=== PATIENT | female | born 1980 | race Caucasian/White ===

== ENCOUNTER 2016-04-07 08:35 | Emergency (ER) | payer OTHER ==
[2016-04-07] MEDS ORDERED: NORCO, ANEXSIA 5/325MG TABLET (HYDROcodone/ACETAMINOPHEN) As Ordered ONE (09:43)
[2016-04-07] MEDS ORDERED: guaiFENesin SYRUP 200 MG/10 ML UDC As Ordered ONE (09:43)
--- NOTE | 2016-04-07 10:02 | REP ---
PA CHEST AND RIGHT RIB SERIES, COMPLETE: 04/07/2016. Comparison: None. Clinical history: Cough, right-sided chest pain. Findings: PA chest: The lung khan are well inflated. There is no pleural effusion, lateral pleural thickening, apical scarring or pneumothorax. No pulmonary nodules. The heart, mediastinal and hilar contours are normal and the airway intact. Thoracic spine visualized is unremarkable. Clavicle, ribs, scapula and portions of humerus in the PA chest unremarkable. Right ribs: Clavicle, scapula and humeral head unremarkable. The posterior rib articulations on both sides were intact. Vertebral bodies were grossly intact. The visualized ribs show no fracture, focal lesion, effusion or pneumothorax. Impression: 1. Negative PA chest and right rib series for any acute fracture, focal bone lesion, effusion or pneumothorax. 2. There is no infiltrate, atelectasis, mass or other significant finding. Bones intact. Signed by Osman Ferreira MD 04/07/2016 03:41 P
--- NOTE | 2016-04-07 10:23 | EDDOCDS ---
Nurse's Notes [facility] Name: Radha Castillo Age: 35 yrs Sex: Female : 1980 Arrival Date: 04/07/2016 Time: 08:35 Bed I2 / M2 Private MD: Diagnosis: Strain of muscle and tendon of front wall of thorax-right lower ribs;Cough Presentation: 04/07 08:45 Presenting complaint: Patient states: has had cough for 2 weeks. given an inhaler from [facility] the clinic. today when she coughed, felt a pop on the right side and pain since. Adult Sepsis Screening: The patient does not have new or worsening altered mentation. Patient's respiratory rate is less than 22. Systolic blood pressure is greater than 100. Patient has a qSOFA score of 0- Negative Sepsis Screen. Suicide/Homicide risk assessment- the patient denies having any suicidal and/or homicidal ideations and does not present with any other emotional, behavioral or mental health complaints. Status: Patient is not a protective service specialist or dependent. Transition of care: patient was not received from another setting of care. 08:45 Acuity: KAREN Level 4 [facility] 08:45 Method Of Arrival: Walkin/Carried/Asstd [facility] Triage Assessment: 08:47 General: Appears in no apparent distress, Behavior is appropriate for age, cooperative. [facility] Pain: Pain currently is 9 out of 10 on a pain scale. HIV screening NA for this visit Offered previously. 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 ventolin HFA every 4-5 hr prn - PMHx: none; - PSHx: none; - Social history: Smoking status: Patient states was never smoker of tobacco. No barriers to communication noted, The patient speaks fluent Yemeni, Speaks appropriately for age. - Family history: Not pertinent. - : The pt / caregiver states he / she is not on anticoagulants. Home medication list is obtained from the patient. - Exposure Risk Screening:: None identified. Screenin:23 Screening information is obtained from the patient. Fall risk: No risks identified. srm Assistance ADL's: requires no assistance with activities of daily living. Abuse/DV Screen: The patient / caregiver reports he/she is: not in a situation that causes fear, pain or injury. Nutritional screening: No deficits noted. Advance Directives: There is no active DNR order. home support is adequate. Assessment: 09:23 General: Appears uncomfortable, Behavior is appropriate for age, cooperative. srm Neurological: No deficits noted. Respiratory: Airway is patent Respiratory effort is even, unlabored, shallow, Breath sounds are clear in left posterior upper lobe and left posterior lower lobe Breath sounds are diminished in right posterior upper lobe, right posterior middle lobe and right posterior lower lobe. GI: No deficits noted. Derm: No deficits noted. 10:20 General: Appears in no apparent distress, Behavior is appropriate for age, cooperative. srm 10:21 Respiratory: Airway is patent Respiratory effort is even, unlabored, shallow. [facility] Vital Signs: 08:47 BP 116 / 71; Pulse 85; Resp 18; Temp 99.1(TE); Pulse Ox 100% on R/A; Weight 47.63 kg; srm Height 5 ft. 3 in. (160.02 cm); 10:18 BP 114 / 72 LA Sitting (auto/reg); Pulse 84; Resp 16; Temp 98.0(O); Pulse Ox 100% on rs6 R/A; Pain 9/10; 08:47 Body Mass Index 18.60 (47.63 kg, 160.02 cm) [facility] Vitals: 08:47 Log In Time: April 07, 2016 at 08:33. [facility] ED Course: 08:36 Patient visited by Kayla Hernandez Reg. lg 08:36 Patient moved to Waiting lg 08:46 Triage Initiated srm 08:52 Patient moved to Triage 2 srm 08:53 Patient moved to I4 / M4 srm 08:55 Patient moved to I2 / M2 rs6 08:56 Patient moved to Radiology srm 09:08 [facility] Graham [facility]. dt4 09:08 Milena Doran MD is Attending Physician. dt4 09:08 Patient visited by Dayna Graham PA-C. dt4 09:10 Patient moved to I2 / M2 bh4 09:23 The patient / caregiver is instructed regarding the plan of care and ED course. srm Accompanied by Family Member, Patient has correct armband on for positive identification. 09:24 Patient visited by Danyell Heller RN. [facility] 09:46 Patient visited by Danyell Heller RN. [facility] 09:52 [facility] Payment Agreement was scanned into [employer] and attached to record. mm15 10:20 Patient visited by Karla Sylvester PCA. rs6 10:21 No IV's were initiated during this patient's visit. No procedures done that require srm assistance. Administered Medications: 09:46 Drug: HYDROcodone-acetaminophen 1 tabs [hydrocodone 5 mg-acetaminophen 325 mg tablet (1 srm tabs)] Route: PO; 10:21 Follow up: Response: Pain is unchanged, physician notified srm 09:46 Drug: guaiFENesin 200 mg [guaifenesin 100 mg/5 mL oral liquid (10 mL)] Route: PO; srm Order Results: There are currently no results for this order. Outcome: 10:14 Discharge ordered by Provider. dt4 10:21 Discharge Assessment: Patient awake, alert and oriented x 3. No cognitive and/or srm functional deficits noted. Patient verbalized understanding of disposition instructions. patient administered narcotics - yes. Pt provided with safe discharge. The following High Risk Discharge criteria are identified: None. Discharged to home ambulatory, with family. Condition: stable. Discharge instructions given to patient, Instructed on discharge instructions, follow up and referral plans. medication usage, Demonstrated understanding of instructions, medications, Pt was receptive of discharge instructions/ teaching. Prescriptions given X 2. No special radiology studies were completed. Property sent home with patient. 10:22 Patient left the ED. srm Signatures: Danyell Heller, RN RN [facility] Kayla Hernandez Reg Reg lg Hayes, Beth 4 Gemini Hardy mm15 Dayna Graham PA-C PA-C dt4 Karla Sylvester PCA PIANO REGULATOR rs6 MTDD
--- NOTE | 2016-04-07 10:23 | EDDOCDS ---
Physician Documentation [facility] Name: Radha Castillo Age: 35 yrs Sex: Female : 1980 Arrival Date: 04/07/2016 Time: 08:35 Bed I2 / M2 Private MD: Disposition: 04/07/16 10:14 Discharged to Home/Self Care. Impression: Strain of muscle and tendon of front wall of thorax - right lower ribs, Cough. - Condition is Stable. - Discharge Instructions: Muscle Strain, Cough, Adult. - Prescriptions for Iophen C- NR 10-100 mg/5 mL Oral liquid - take 10 milliliter by ORAL route at bedtime As needed; 120 milliliter. [place] 5- 325 mg Oral Tablet - take 1 tablet by ORAL route every 6 hours As needed MDD: 4 tabs; 20 tablet. - Medication Reconciliation, Local Pharmacy Hours form. - Follow up: Emergency Department; When: As needed; Reason: Worsening of conditions. Follow up: Private Physician; When: Call to arrange an appointment; Reason: Wound/Symptom Recheck, Recheck today's complaints, Continuance of care. - Problem is new. - Symptoms are unchanged. Historical: - Allergies: no known allergies; - Home Meds: 1. ventolin HFA every 4-5 hr prn - PMHx: none; - PSHx: none; - Social history: Smoking status: Patient states was never smoker of tobacco. No barriers to communication noted, The patient speaks fluent South Korean, Speaks appropriately for age. - Family history: Not pertinent. - : The pt / caregiver states he / she is not on anticoagulants. Home medication list is obtained from the patient. - Exposure Risk Screening:: None identified. 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 3 in. (160.02 cm); 10:18 BP 114 / 72 LA Sitting (auto/reg); Pulse 84; Resp 16; Temp 98.0(O); Pulse Ox 100% on rs6 R/A; Pain 9/10; 08:47 Body Mass Index 18.60 (47.63 kg, 160.02 cm) srm MDM: 08:49 Rib Unilat W/PA Chest Only Ordered. EDMS 09:13 Financial registration complete. mm15 09:34 HYDROcodone-acetaminophen 5 mg-325 mg 1 tabs PO once ordered. dt4 09:34 guaiFENesin Liquid 200 mg PO once ordered. dt4 09:52 [facility] Payment Agreement was scanned into [employer] and attached to record. mm15 Administered Medications: 09:46 Drug: HYDROcodone-acetaminophen 1 tabs [hydrocodone 5 mg-acetaminophen 325 mg tablet (1 srm tabs)] Route: PO; 10:21 Follow up: Response: Pain is unchanged, physician notified srm 09:46 Drug: guaiFENesin 200 mg [guaifenesin 100 mg/5 mL oral liquid (10 mL)] Route: PO; srm Signatures: Dispatcher [employer] EDMS Danyell Heller RN RN srm Gemini Hardy mm15 Dayna Graham PA-C PA-C dt4 The chart was reviewed and I authenticate all verbal orders and agree with the evaluation and treatment provided.Attachments: 09:52 [facility] Payment Agreement mm15 MTDD
--- NOTE | 2016-04-09 11:23 | EDDOCDS ---
Physician Documentation [facility] Name: Radha Castillo Age: 35 yrs Sex: Female : 1980 Arrival Date: 04/07/2016 Time: 08:35 Bed I2 / M2 Private MD: Disposition: 04/07/16 10:14 Discharged to Home/Self Care. Impression: Strain of muscle and tendon of front wall of thorax - right lower ribs, Cough. - Condition is Stable. - Discharge Instructions: Muscle Strain, Cough, Adult. - Prescriptions for Iophen C- NR 10-100 mg/5 mL Oral liquid - take 10 milliliter by ORAL route at bedtime As needed; 120 milliliter. [place] 5- 325 mg Oral Tablet - take 1 tablet by ORAL route every 6 hours As needed MDD: 4 tabs; 20 tablet. - Medication Reconciliation, Local Pharmacy Hours form. - Follow up: Emergency Department; When: As needed; Reason: Worsening of conditions. Follow up: Private Physician; When: Call to arrange an appointment; Reason: Wound/Symptom Recheck, Recheck today's complaints, Continuance of care. - Problem is new. - Symptoms are unchanged. Historical: - Allergies: no known allergies; - Home Meds: 1. ventolin HFA every 4-5 hr prn - PMHx: none; - PSHx: none; - Social history: Smoking status: Patient states was never smoker of tobacco. No barriers to communication noted, The patient speaks fluent Indian, Speaks appropriately for age. - Family history: Not pertinent. - : The pt / caregiver states he / she is not on anticoagulants. Home medication list is obtained from the patient. - Exposure Risk Screening:: None identified. 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 3 in. (160.02 cm); 10:18 BP 114 / 72 LA Sitting (auto/reg); Pulse 84; Resp 16; Temp 98.0(O); Pulse Ox 100% on rs6 R/A; Pain 9/10; 08:47 Body Mass Index 18.60 (47.63 kg, 160.02 cm) srm MDM: 08:49 Rib Unilat W/PA Chest Only Ordered. EDMS 09:13 Financial registration complete. mm15 09:34 HYDROcodone-acetaminophen 5 mg-325 mg 1 tabs PO once ordered. dt4 09:34 guaiFENesin Liquid 200 mg PO once ordered. dt4 09:52 [facility] Payment Agreement was scanned into [employer] and attached to record. mm15 14:51 T-Sheet-- Draft Copy was scanned into [employer] and attached to record. gb Administered Medications: 09:46 Drug: HYDROcodone-acetaminophen 1 tabs [hydrocodone 5 mg-acetaminophen 325 mg tablet (1 srm tabs)] Route: PO; 10:21 Follow up: Response: Pain is unchanged, physician notified srm 09:46 Drug: guaiFENesin 200 mg [guaifenesin 100 mg/5 mL oral liquid (10 mL)] Route: PO; srm Signatures: Dispatcher [employer] EDMS Danyell Heller RN RN srm Marcella Cordon, Reg Reg Gemini Young mm15 Dayna Grahma PA-C PA-C dt4 The chart was reviewed and I authenticate all verbal orders and agree with the evaluation and treatment provided.Attachments: 09:52 [facility] Payment Agreement mm15 14:51 T-Sheet-- Draft Copy gb Chart Complete MTDD
--- NOTE | 2016-04-09 11:23 | EDDOCDS ---
Nurse's Notes [facility] Name: Radha Castillo Age: 35 yrs Sex: Female : 1980 Arrival Date: 04/07/2016 Time: 08:35 Bed I2 / M2 Private MD: Diagnosis: Strain of muscle and tendon of front wall of thorax-right lower ribs;Cough Presentation: 04/07 08:45 Presenting complaint: Patient states: has had cough for 2 weeks. given an inhaler from [facility] the clinic. today when she coughed, felt a pop on the right side and pain since. Adult Sepsis Screening: The patient does not have new or worsening altered mentation. Patient's respiratory rate is less than 22. Systolic blood pressure is greater than 100. Patient has a qSOFA score of 0- Negative Sepsis Screen. Suicide/Homicide risk assessment- the patient denies having any suicidal and/or homicidal ideations and does not present with any other emotional, behavioral or mental health complaints. Status: Patient is not a front services agent or dependent. Transition of care: patient was not received from another setting of care. 08:45 Acuity: KAREN Level 4 [facility] 08:45 Method Of Arrival: Walkin/Carried/Asstd [facility] Triage Assessment: 08:47 General: Appears in no apparent distress, Behavior is appropriate for age, cooperative. [facility] Pain: Pain currently is 9 out of 10 on a pain scale. HIV screening NA for this visit Offered previously. 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 ventolin HFA every 4-5 hr prn - PMHx: none; - PSHx: none; - Social history: Smoking status: Patient states was never smoker of tobacco. No barriers to communication noted, The patient speaks fluent Nauruan, Speaks appropriately for age. - Family history: Not pertinent. - : The pt / caregiver states he / she is not on anticoagulants. Home medication list is obtained from the patient. - Exposure Risk Screening:: None identified. Screenin:23 Screening information is obtained from the patient. Fall risk: No risks identified. srm Assistance ADL's: requires no assistance with activities of daily living. Abuse/DV Screen: The patient / caregiver reports he/she is: not in a situation that causes fear, pain or injury. Nutritional screening: No deficits noted. Advance Directives: There is no active DNR order. home support is adequate. Assessment: 09:23 General: Appears uncomfortable, Behavior is appropriate for age, cooperative. srm Neurological: No deficits noted. Respiratory: Airway is patent Respiratory effort is even, unlabored, shallow, Breath sounds are clear in left posterior upper lobe and left posterior lower lobe Breath sounds are diminished in right posterior upper lobe, right posterior middle lobe and right posterior lower lobe. GI: No deficits noted. Derm: No deficits noted. 10:20 General: Appears in no apparent distress, Behavior is appropriate for age, cooperative. srm 10:21 Respiratory: Airway is patent Respiratory effort is even, unlabored, shallow. [facility] Vital Signs: 08:47 BP 116 / 71; Pulse 85; Resp 18; Temp 99.1(TE); Pulse Ox 100% on R/A; Weight 47.63 kg; srm Height 5 ft. 3 in. (160.02 cm); 10:18 BP 114 / 72 LA Sitting (auto/reg); Pulse 84; Resp 16; Temp 98.0(O); Pulse Ox 100% on rs6 R/A; Pain 9/10; 08:47 Body Mass Index 18.60 (47.63 kg, 160.02 cm) [facility] Vitals: 08:47 Log In Time: April 07, 2016 at 08:33. [facility] ED Course: 08:36 Patient visited by Kayla Hernandez Reg. lg 08:36 Patient moved to Waiting lg 08:46 Triage Initiated srm 08:52 Patient moved to Triage 2 srm 08:53 Patient moved to I4 / M4 srm 08:55 Patient moved to I2 / M2 rs6 08:56 Patient moved to Radiology srm 09:08 Dayna Graham [facility]-C [facility]. dt4 09:08 Milena Doran MD is Attending Physician. dt4 09:08 Patient visited by Dayna Graham PA-C. dt4 09:10 Patient moved to I2 / M2 bh4 09:23 The patient / caregiver is instructed regarding the plan of care and ED course. srm Accompanied by Family Member, Patient has correct armband on for positive identification. 09:24 Patient visited by Danyell Heller RN. [facility] 09:46 Patient visited by Danyell Heller RN. [facility] 09:52 [facility] Payment Agreement was scanned into [employer] and attached to record. mm15 10:20 Patient visited by Karla Sylvester PCA. rs6 10:21 No IV's were initiated during this patient's visit. No procedures done that require srm assistance. 10:27 Rib Unilat W/PA Chest Only Returned. EDMS 14:51 T-Sheet-- Draft Copy was scanned into [employer] and attached to record. gb Administered Medications: 09:46 Drug: HYDROcodone-acetaminophen 1 tabs [hydrocodone 5 mg-acetaminophen 325 mg tablet (1 srm tabs)] Route: PO; 10:21 Follow up: Response: Pain is unchanged, physician notified srm 09:46 Drug: guaiFENesin 200 mg [guaifenesin 100 mg/5 mL oral liquid (10 mL)] Route: PO; srm Order Results: Radiology Order: Rib Unilat W/PA Chest Only Test: Rib Unilat W/PA Chest Only REASON FOR EXAMINATION: cough, right-sided pain; PA CHEST AND RIGHT RIB SERIES, COMPLETE: 04/07/2016.; ; Comparison: None.; ; Clinical history: Cough, right-sided chest pain.; ; Findings:; PA chest: The lung khan are well inflated. There is no pleural effusion,; lateral pleural thickening, apical scarring or pneumothorax. No pulmonary; nodules. The heart, mediastinal and hilar contours are normal and the airway; intact. Thoracic spine visualized is unremarkable. Clavicle, ribs, scapula and; portions of humerus in the PA chest unremarkable.; ; Right ribs: Clavicle, scapula and humeral head unremarkable. The posterior rib; articulations on both sides were intact. Vertebral bodies were grossly intact.; The visualized ribs show no fracture, focal lesion, effusion or pneumothorax.; ; Impression:; ; 1. Negative PA chest and right rib series for any acute fracture, focal bone; lesion, effusion or pneumothorax.; ; 2. There is no infiltrate, atelectasis, mass or other significant finding.; Bones intact.; ; ; Signed by; Osman Ferreira MD 04/07/2016 03:41 P; Outcome: 10:14 Discharge ordered by Provider. dt4 10:21 Discharge Assessment: Patient awake, alert and oriented x 3. No cognitive and/or srm functional deficits noted. Patient verbalized understanding of disposition instructions. patient administered narcotics - yes. Pt provided with safe discharge. The following High Risk Discharge criteria are identified: None. Discharged to home ambulatory, with family. Condition: stable. Discharge instructions given to patient, Instructed on discharge instructions, follow up and referral plans. medication usage, Demonstrated understanding of instructions, medications, Pt was receptive of discharge instructions/ teaching. Prescriptions given X 2. No special radiology studies were completed. Property sent home with patient. 10:22 Patient left the ED. srm Signatures: Dispatcher [employer] EDWI Danyell Heller RN RN srm Marcella Cordon, Reg Reg gb Kayla Hernandez, Reg Reg lg Beena Barnhart bh4 Gemini Hardy mm15 Dayna Graham, PABLO SHAH dt4 Karla Sylvester, KELSEY PROCESSING MANAGER rs6 Chart Complete MTDD
--- NOTE | 2016-04-09 11:23 | EDDOCDS ---
Physician Documentation [facility] Name: Radha Castillo Age: 35 yrs Sex: Female : 1980 Arrival Date: 04/07/2016 Time: 08:35 Bed I2 / M2 Private MD: Disposition: 04/07/16 10:14 Discharged to Home/Self Care. Impression: Strain of muscle and tendon of front wall of thorax - right lower ribs, Cough. - Condition is Stable. - Discharge Instructions: Muscle Strain, Cough, Adult. - Prescriptions for Iophen C- NR 10-100 mg/5 mL Oral liquid - take 10 milliliter by ORAL route at bedtime As needed; 120 milliliter. [place] 5- 325 mg Oral Tablet - take 1 tablet by ORAL route every 6 hours As needed MDD: 4 tabs; 20 tablet. - Medication Reconciliation, Local Pharmacy Hours form. - Follow up: Emergency Department; When: As needed; Reason: Worsening of conditions. Follow up: Private Physician; When: Call to arrange an appointment; Reason: Wound/Symptom Recheck, Recheck today's complaints, Continuance of care. - Problem is new. - Symptoms are unchanged. Historical: - Allergies: no known allergies; - Home Meds: 1. ventolin HFA every 4-5 hr prn - PMHx: none; - PSHx: none; - Social history: Smoking status: Patient states was never smoker of tobacco. No barriers to communication noted, The patient speaks fluent [place] Leonean, Speaks appropriately for age. - Family history: Not pertinent. - : The pt / caregiver states he / she is not on anticoagulants. Home medication list is obtained from the patient. - Exposure Risk Screening:: None identified. 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 3 in. (160.02 cm); 10:18 BP 114 / 72 LA Sitting (auto/reg); Pulse 84; Resp 16; Temp 98.0(O); Pulse Ox 100% on rs6 R/A; Pain 9/10; 08:47 Body Mass Index 18.60 (47.63 kg, 160.02 cm) srm MDM: 08:49 Rib Unilat W/PA Chest Only Ordered. EDMS 09:13 Financial registration complete. mm15 09:34 HYDROcodone-acetaminophen 5 mg-325 mg 1 tabs PO once ordered. dt4 09:34 guaiFENesin Liquid 200 mg PO once ordered. dt4 09:52 [facility] Payment Agreement was scanned into [employer] and attached to record. mm15 14:51 T-Sheet-- Draft Copy was scanned into [employer] and attached to record. gb Administered Medications: 09:46 Drug: HYDROcodone-acetaminophen 1 tabs [hydrocodone 5 mg-acetaminophen 325 mg tablet (1 srm tabs)] Route: PO; 10:21 Follow up: Response: Pain is unchanged, physician notified srm 09:46 Drug: guaiFENesin 200 mg [guaifenesin 100 mg/5 mL oral liquid (10 mL)] Route: PO; srm Signatures: Dispatcher [employer] EDMS Danyell Heller RN RN srm Marcella Cordon, Reg Reg Gemini Young mm15 Dayna Graham PA-C PA-C dt4 The chart was reviewed and I authenticate all verbal orders and agree with the evaluation and treatment provided.Attachments: 09:52 [facility] Payment Agreement mm15 14:51 T-Sheet-- Draft Copy gb Chart Complete MTDD
== END 2016-04-07 10:22 | disposition home or self-care (01) ==
LOC: M ED 08:35
DX: S29.011A Strain of muscle and tendon of front wall of thorax, initial encounter (principal); X50.9XXA Other and unspecified overexertion or strenuous movements or postures, initial encounter; Y92.89 Other specified places as the place of occurrence of the external cause; Y93.89 Activity, other specified; Y99.9 Unspecified external cause status

== ENCOUNTER → 2016-04-11 | Outpatient (REF) | payer OTHER | LOC: M LAB REF 15:05 | PROVIDERS: ATTEND Physician Assistant Medical | DX: R50.9 Fever, unspecified (principal) ==

== ENCOUNTER → 2016-10-12 | Outpatient (CLI) | payer OTHER ==
[2016-10-12 13:32] LABS: BASO % 0.4 % (0.0-1.0); EOS # 0.1 K/mm3 (0.0-0.50); EOS % 4.4 % (0.0-3.0); LARGE UNSTAINED CELL # 0.1 K/mm3 (0.0-0.4); LARGE UNSTAINED CELL % 2.2 % (0.0-4.0); LYMPH # 1.1 K/mm3 (1.5-4.5); LYMPH % 35.3 % (24.0-44.0); MEAN CORPUSCULAR HEMOGLOBIN 29.3 pg (27.0-33.0); MEAN CORPUSCULAR HGB CONC 34.6 g/dl (32.0-36.5); MEAN CORPUSCULAR VOLUME 84.5 fl (80.0-96.0); MONO # 0.2 K/mm3 (0.0-0.8); MONO % 8.4 % (0.0-5.0); NEUTROPHILS # 1.4 K/mm3 (1.8-7.7); NEUTROPHILS % 49.4 % (36.0-66.0); PLATELET COUNT, AUTOMATED 209 k/mm3 (150-450); RED CELL DISTRIBUTION WIDTH 12.5 % (11.5-14.5); WHITE BLOOD COUNT 2.9 K/mm3 (4.0-10.0)
[2016-10-12 13:49] LABS: ANION GAP 6 MEQ/L (8-16); BLOOD UREA NITROGEN 16 MG/DL (7-18); CALCIUM LEVEL 9.3 MG/DL (8.5-10.1); CARBON DIOXIDE LEVEL 30 MEQ/L (21-32); CHLORIDE LEVEL 105 MEQ/L (98-107); FREE T4 0.97 NG/DL (0.76-1.46); GLOMERULAR FILTRATION RATE > 60.0 (>60); GLUCOSE, FASTING 84 MG/DL (70-105); POTASSIUM SERUM 4.4 MEQ/L (3.5-5.1); SODIUM LEVEL 141 MEQ/L (136-145)
== END ==
LOC: M SMT 10:02
PROVIDERS: ATTEND Physician Assistant
DX: K59.00 Constipation, unspecified (principal); R53.83 Other fatigue

== ENCOUNTER → 2016-11-21 | Outpatient (CLI) | payer OTHER ==
--- NOTE | 2016-11-24 19:40 | SLEEPHOME ---
DATE OF PROCEDURE: 11/21/2016 ORDERED BY: Rene Olmedo Diagnostic home sleep testing was performed due to concern for the obstructive sleep apnea syndrome. For testing, a NOX-T3 respiratory monitoring device was used. Continuous record was made of pulse, oxygen saturation, air flow, chest and abdominal strain and body position. 10 hours and 59 minutes of data were reviewed. Of these, 6 hours and 11 minutes were marked as time in bed. During the interval marked time in bed, there were only 8 respiratory events identified of 10 seconds in duration or greater for a respiratory event index of 1.3, within normal limits. The patient's baseline pulse rate was 66. Pulse rate ranged 55 to 109. Baseline saturation 97%. Lowest oxygen saturation 90%. IMPRESSION: Normal diagnostic home sleep test. No evidence was seen to support the obstructive sleep apnea syndrome.
== END ==
LOC: M SLEEP HO 15:30
PROVIDERS: ATTEND Physician Assistant
DX: R53.83 Other fatigue (principal)

== ENCOUNTER → 2016-11-27 | Outpatient (CLI) | payer OTHER ==
[2016-11-27 17:55] LABS: FREE T4 0.99 NG/DL (0.76-1.46)
== END ==
LOC: M SMT 15:08
PROVIDERS: ATTEND Physician Assistant
DX: R53.83 Other fatigue (principal)

== ENCOUNTER → 2017-03-02 | Outpatient (REF) | payer OTHER | LOC: M LAB REF 08:48 | DX: J02.9 Acute pharyngitis, unspecified (principal) ==

== ENCOUNTER → 2017-05-18 | Outpatient (CLI) | payer OTHER ==
[2017-05-18 17:57] LABS: BASO % 0.2 % (0.0-1.0); EOS # 0.1 10^3/uL (0.0-0.50); EOS % 2.1 % (0.0-3.0); HEMOGLOBIN 9.9 g/dl (12.0-15.5); IMMATURE GRANULOCYTE % 0.2 % (0-3.0); LYMPH # 1.3 10^3/uL (1.5-4.5); LYMPH % 27.2 % (24.0-44.0); MEAN CORPUSCULAR HEMOGLOBIN 24.4 pg (27.0-33.0); MEAN CORPUSCULAR HGB CONC 30.9 g/dl (32.0-36.5); MEAN CORPUSCULAR VOLUME 78.8 fl (80.0-96.0); MONO # 0.5 10^3/uL (0.0-0.8); MONO % 11.2 % (0.0-5.0); NEUTROPHILS # 2.9 10^3/uL (1.8-7.7); NEUTROPHILS % 59.1 % (36.0-66.0); PLATELET COUNT, AUTOMATED 242 10^3/uL (150-450); RED BLOOD COUNT 4.06 10^6/uL (4.00-5.40); RED CELL DISTRIBUTION WIDTH 13.6 % (11.5-14.5); WHITE BLOOD COUNT 4.8 10^3/uL (4.0-10.0)
[2017-05-18 18:10] LABS: TOTAL 25(OH) VITAMIN D 36.6 NG/ML (30.0-100.0)
[2017-05-18 18:17] LABS: FERRITIN 4 NG/ML (8-252); FREE T4 0.93 NG/DL (0.76-1.46); IRON (FE) 20 UG/DL (50-170); PERCENT SATURATION 4.6 % (13.2-45.0); TOTAL IRON BINDING CAPACITY 436 UG/DL (250-450)
== END ==
LOC: M SMT 14:36
DX: E03.9 Hypothyroidism, unspecified (principal); E55.9 Vitamin D deficiency, unspecified; F45.8 Other somatoform disorders
CPT/HCPCS: 83550

== ENCOUNTER 2017-12-26 07:43 | Day surgery (SDC) | payer OTHER ==
[~2017-12-26 07:43] MED LIST: LR 1,000 ML IV
[2017-12-26 08:16] LABS: HEMATOCRIT 42.2 % (36.0-47.0); HEMOGLOBIN 14.2 g/dl (12.0-15.5); MEAN CORPUSCULAR HEMOGLOBIN 28.9 pg (27.0-33.0); MEAN CORPUSCULAR HGB CONC 33.6 g/dl (32.0-36.5); MEAN CORPUSCULAR VOLUME 85.9 fl (80.0-96.0); PLATELET COUNT, AUTOMATED 230 10^3/uL (150-450); RED BLOOD COUNT 4.91 10^6/uL (4.00-5.40); RED CELL DISTRIBUTION WIDTH 12.5 % (11.5-14.5); WHITE BLOOD COUNT 4.1 10^3/uL (4.0-10.0)
[2017-12-26 08:22] LABS: CONTROL LINE UCG INT CTR LINE PRESENT; URINE PREG TEST NEGATIVE (NEGATIVE)
[2017-12-26] MEDS: LIDOCAINE 1% SDV INJ 30 ML VIAL As Ordered (08:29)
[2017-12-26] MEDS ORDERED: MIDAZOLAM INJ 2 MG/2 ML VIAL (J2250) As Ordered (09:16)
[2017-12-26] MEDS ORDERED: KETOROLAC 60 MG/2 ML VIAL (J1885) As Ordered (09:16)
[2017-12-26] MEDS ORDERED: fentaNYL 100 MCG/2 ML INJECTION (J3010) As Ordered ×2 (09:16→09:38)
[2017-12-26] MEDS ORDERED: LIDOCAINE 2% INJ 100 MG/5 ML SDV (FOR ANES.) As Ordered (09:16)
[2017-12-26] MEDS ORDERED: ONDANSETRON 4MG/2ML VIAL (J2405) As Ordered (09:16)
[2017-12-26] MEDS ORDERED: PROPOFOL 200 MG/20 ML VIAL As Ordered (09:16)
[2017-12-26] MEDS ORDERED: dexameTHASONE 4 MG/ML 1ML VIAL (J1100) As Ordered (09:16)
[2017-12-26] MEDS: fentaNYL 100 MCG/2 ML INJECTION (J3010) IV ×4 (09:42→09:57)
[2017-12-26] MEDS ORDERED: ONDANSETRON 4MG/2ML VIAL (J2405) IV (09:45)
[2017-12-26] MEDS ORDERED: LR 1,000 ML IV ×2 (09:45)
[2017-12-26] MEDS: PERCOCET 5MG/325MG TAB PO (09:56)
== END 2017-12-26 11:00 | disposition home or self-care (01) ==
LOC: M SDC 07:43
DX: N92.0 Excessive and frequent menstruation with regular cycle (principal); E03.9 Hypothyroidism, unspecified; F32.9 Major depressive disorder, single episode, unspecified; Z79.899 Other long term (current) drug therapy
CPT/HCPCS: 58563

== ENCOUNTER → 2018-03-01 | Outpatient (CLI) | payer OTHER ==
[~2018-03-01] MED LIST changes: -LR 1,000 ML IV; +OXYC1TAB23 PO
[2018-03-01 18:06] LABS: BASO % 0.2 % (0.0-1.0); EOS # 0.2 10^3/uL (0.0-0.50); EOS % 3.2 % (0.0-3.0); HEMATOCRIT 39.7 % (36.0-47.0); HEMOGLOBIN 13.2 g/dl (12.0-15.5); LYMPH # 1.3 10^3/uL (1.5-4.5); LYMPH % 26.8 % (24.0-44.0); MEAN CORPUSCULAR HEMOGLOBIN 29.1 pg (27.0-33.0); MEAN CORPUSCULAR HGB CONC 33.2 g/dl (32.0-36.5); MEAN CORPUSCULAR VOLUME 87.4 fl (80.0-96.0); MONO # 0.5 10^3/uL (0.0-0.8); MONO % 9.7 % (0.0-5.0); NEUTROPHILS % 59.7 % (36.0-66.0); PLATELET COUNT, AUTOMATED 222 10^3/uL (150-450); RED BLOOD COUNT 4.54 10^6/uL (4.00-5.40)
[2018-03-01 18:34] LABS: ALBUMIN 4.2 GM/DL (3.2-5.2); ALT/SGPT 24 U/L (12-78); BILIRUBIN,TOTAL 0.6 MG/DL (0.2-1.0); BLOOD UREA NITROGEN 15 MG/DL (7-18); CALCIUM LEVEL 8.9 MG/DL (8.5-10.1); CARBON DIOXIDE LEVEL 29 MEQ/L (21-32); CHLORIDE LEVEL 102 MEQ/L (98-107); CREATININE FOR GFR 0.76 MG/DL (0.55-1.30); GLOMERULAR FILTRATION RATE > 60.0 (>60); GLUCOSE, FASTING 82 MG/DL (70-100); MAGNESIUM LEVEL 2.2 MG/DL (1.8-2.4); SODIUM LEVEL 137 MEQ/L (136-145); TOTAL PROTEIN 6.9 GM/DL (6.4-8.2)
== END ==
LOC: M SMT 15:14
PROVIDERS: ATTEND Physician Assistant
DX: G43.009 Migraine without aura, not intractable, without status migrainosus (principal)

== ENCOUNTER → 2018-11-02 | Outpatient (CLI) | payer OTHER ==
[2018-11-02 18:11] LABS: BASO % 0.2 % (0.0-1.0); EOS # 0.1 10^3/uL (0.0-0.5); HEMATOCRIT 41.3 % (36.0-47.0); HEMOGLOBIN 13.6 g/dl (12.0-15.5); LYMPH # 0.8 10^3/uL (1.5-5.0); LYMPH % 17.7 % (24.0-44.0); MEAN CORPUSCULAR HEMOGLOBIN 29.1 pg (27.0-33.0); MEAN CORPUSCULAR HGB CONC 32.9 g/dl (32.0-36.5); MEAN CORPUSCULAR VOLUME 88.4 fl (80.0-96.0); MONO # 0.7 10^3/uL (0.0-0.8); MONO % 16.1 % (0.0-5.0); NEUTROPHILS # 2.8 10^3/uL (1.5-8.5); NEUTROPHILS % 63.8 % (36.0-66.0); PLATELET COUNT, AUTOMATED 175 10^3/uL (150-450); RED BLOOD COUNT 4.67 10^6/uL (4.00-5.40); WHITE BLOOD COUNT 4.4 10^3/uL (4.0-10.0)
[2018-11-02 18:34] LABS: ALBUMIN 3.9 GM/DL (3.2-5.2); ALT/SGPT 18 U/L (12-78); BILIRUBIN,DIRECT < 0.1 MG/DL (0.0-0.2); BILIRUBIN,TOTAL 0.3 MG/DL (0.2-1.0); BLOOD UREA NITROGEN 21 MG/DL (7-18); CALCIUM LEVEL 8.6 MG/DL (8.5-10.1); CARBON DIOXIDE LEVEL 26 MEQ/L (21-32); CHLORIDE LEVEL 108 MEQ/L (98-107); CREATININE FOR GFR 0.83 MG/DL (0.55-1.30); GLOMERULAR FILTRATION RATE > 60.0 (>60); GLUCOSE, FASTING 76 MG/DL (70-100); LIPASE 235 U/L (73-393); POTASSIUM SERUM 4.6 MEQ/L (3.5-5.1); SODIUM LEVEL 142 MEQ/L (136-145); TOTAL PROTEIN 6.5 GM/DL (6.4-8.2)
== END ==
LOC: M LABDRWAD 08:44
PROVIDERS: ATTEND Physician Assistant
DX: R10.10 Upper abdominal pain, unspecified (principal)

== ENCOUNTER → 2019-01-11 | Outpatient (CLI) | payer OTHER ==
[2019-01-11 17:52] LABS: BASO % 0.3 % (0.0-1.0); EOS # 0.1 10^3/uL (0.0-0.5); EOS % 2.7 % (0.0-3.0); HEMATOCRIT 38.7 % (36.0-47.0); HEMOGLOBIN 12.3 g/dl (12.0-15.5); LYMPH # 0.9 10^3/uL (1.5-5.0); LYMPH % 27.2 % (24.0-44.0); MEAN CORPUSCULAR HEMOGLOBIN 27.1 pg (27.0-33.0); MEAN CORPUSCULAR HGB CONC 31.8 g/dl (32.0-36.5); MEAN CORPUSCULAR VOLUME 85.2 fl (80.0-96.0); MONO # 0.4 10^3/uL (0.0-0.8); MONO % 12.7 % (0.0-5.0); NEUTROPHILS # 1.9 10^3/uL (1.5-8.5); NEUTROPHILS % 56.8 % (36.0-66.0); PLATELET COUNT, AUTOMATED 211 10^3/uL (150-450); RED BLOOD COUNT 4.54 10^6/uL (4.00-5.40); WHITE BLOOD COUNT 3.3 10^3/uL (4.0-10.0)
[2019-01-11 18:26] LABS: ALBUMIN 3.9 GM/DL (3.2-5.2); ALT/SGPT 23 U/L (12-78); BILIRUBIN,TOTAL 0.4 MG/DL (0.2-1.0); BLOOD UREA NITROGEN 14 MG/DL (7-18); CALCIUM LEVEL 8.9 MG/DL (8.5-10.1); CARBON DIOXIDE LEVEL 26 MEQ/L (21-32); CHLORIDE LEVEL 109 MEQ/L (98-107); CREATININE FOR GFR 0.71 MG/DL (0.55-1.30); FREE T4 0.78 NG/DL (0.76-1.46); GLOMERULAR FILTRATION RATE > 60.0 (>60); GLUCOSE, FASTING 89 MG/DL (70-100); POTASSIUM SERUM 4.4 MEQ/L (3.5-5.1); SODIUM LEVEL 142 MEQ/L (136-145); TOTAL PROTEIN 6.9 GM/DL (6.4-8.2)
[2019-01-13 11:31] LABS: TOTAL 25(OH) VITAMIN D 23.6 NG/ML (30.0-100.0)
== END ==
LOC: M LABDRWAD 12:24
PROVIDERS: ATTEND Physician Assistant
DX: E03.9 Hypothyroidism, unspecified (principal)

== ENCOUNTER 2019-03-16 15:52 | Emergency (ER) | payer OTHER ==
[~2019-03-16] VITALS: Ht 160 cm; Wt 50.4 kg
[2019-03-16] MEDS ORDERED: LEVO75TA4 (15:58)
[2019-03-16] MEDS ORDERED: BUTA1CAP3 (15:58)
[2019-03-16] MEDS ORDERED: BUPR150T3 (15:58)
[2019-03-16] MEDS ORDERED: ALPR0.5T3 (15:58)
[2019-03-16] MEDS ORDERED: MM S100C PO (16:19)
[2019-03-16] MEDS ORDERED: MAGNESIUM CITRATE 300 ML BTL PO ONE (17:45)
[2019-03-16 17:50] VITALS: BP 123/82
[2019-03-16] MEDS ORDERED: MIRA3350 PO (17:55)
--- NOTE | 2019-03-17 07:52 | REP ---
ABDOMEN SUPINE: 03/16/2019. CLINICAL HISTORY: Abdominal pain. Constipation versus obstruction. FINDINGS: No prior studies. The two views show moderate stool in the right colon and scattered stool in the proximal transverse colon. There is gas in the splenic flexure and left colon and small amounts of rectosigmoid stool. Scattered gas in small bowel loops without dilatation. No abnormal soft tissue calcifications. Bones intact. A couple of pelvic phleboliths on the right side of the true pelvis. IMPRESSION: 1. Nonspecific gas pattern without obstruction, mass or free air. Although there is some moderate retained stool in the cecum and right colon, I do not see significant constipation nor any dilatation of colon or small bowel loops. 2. No abnormal soft tissue calcifications. Bones intact. Electronically Signed by Osman Ferreira MD 03/17/2019 09:32 A
== END 2019-03-16 18:07 | disposition home or self-care (01) ==
LOC: M ED 15:52
DX: K59.00 Constipation, unspecified (principal); E03.9 Hypothyroidism, unspecified; Z79.899 Other long term (current) drug therapy

== ENCOUNTER → 2019-05-02 | Outpatient (REF) | payer OTHER ==
[~2019-05-02] MED LIST changes: +ALPR0.5T3; +BUPR150T3; +BUTA1CAP3; +LEVO75TA4; +MIRA3350 PO; +MM S100C PO
[2019-05-02 17:27] LABS: INFLUENZA A AMPLIFICATION NEGATIVE (NEGATIVE); INFLUENZA B AMPLIFICATION POSITIVE (NEGATIVE)
== END ==
LOC: M LAB REF 16:15
PROVIDERS: ATTEND Physician Assistant Medical
DX: J11.1 Influenza due to unidentified influenza virus with other respiratory manifestations (principal)

== ENCOUNTER → 2019-06-11 | Outpatient (REF) | payer OTHER ==
[2019-06-11 17:26] LABS: EOS # 0.2 10^3/uL (0.0-0.5); EOS % 3.7 % (0.0-3.0); HEMATOCRIT 38.7 % (36.0-47.0); HEMOGLOBIN 11.9 g/dl (12.0-15.5); LYMPH # 1.2 10^3/uL (1.5-5.0); LYMPH % 30.3 % (24.0-44.0); MEAN CORPUSCULAR HEMOGLOBIN 25.2 pg (27.0-33.0); MEAN CORPUSCULAR HGB CONC 30.7 g/dl (32.0-36.5); MONO # 0.5 10^3/uL (0.0-0.8); MONO % 13.1 % (0.0-5.0); NEUTROPHILS # 2.1 10^3/uL (1.5-8.5); NEUTROPHILS % 52.7 % (36.0-66.0); PLATELET COUNT, AUTOMATED 239 10^3/uL (150-450); RED BLOOD COUNT 4.72 10^6/uL (4.00-5.40); WHITE BLOOD COUNT 4.1 10^3/uL (4.0-10.0)
[2019-06-11 17:40] LABS: ALBUMIN 4.3 GM/DL (3.2-5.2); ALT/SGPT 16 U/L (12-78); BILIRUBIN,TOTAL 0.2 MG/DL (0.2-1.0); BLOOD UREA NITROGEN 21 MG/DL (7-18); CALCIUM LEVEL 9.3 MG/DL (8.5-10.1); CARBON DIOXIDE LEVEL 27 MEQ/L (21-32); CHLORIDE LEVEL 103 MEQ/L (98-107); CREATININE FOR GFR 0.86 MG/DL (0.55-1.30); FOLATE 8.6 NG/ML; FREE T4 1.21 NG/DL (0.76-1.46); GLOMERULAR FILTRATION RATE > 60.0 (>60); GLUCOSE, FASTING 83 MG/DL (70-100); POTASSIUM SERUM 4.3 MEQ/L (3.5-5.1); SODIUM LEVEL 135 MEQ/L (136-145); THYROID STIMULATING HORMONE 0.174 uIU/ML (0.358-3.740); TOTAL 25(OH) VITAMIN D 26.2 NG/ML (30.0-100.0); TOTAL PROTEIN 7.7 GM/DL (6.4-8.2); VITAMIN B12 LEVEL 422 PG/ML
== END ==
LOC: M LABDRWAD 16:15
PROVIDERS: ATTEND Physician Assistant
DX: E03.9 Hypothyroidism, unspecified (principal); R53.83 Other fatigue

== ENCOUNTER → 2020-12-24 | Outpatient (REF) | payer BC ==
[~2020-12-24] MED LIST changes: +BUPR150T12; -BUPR150T3
[2020-12-24 22:14] LABS: APPEARANCE, URINE HAZY (CLEAR); BACTERIA, URINE AUTO 2+ (NEGATIVE); BILIRUBIN, URINE AUTO NEGATIVE (NEGATIVE); BLOOD, URINE BLOOD NEGATIVE (NEGATIVE); COLOR, URINE YELLOW (YELLOW); GLUCOSE, URINE (UA) AUTO NEGATIVE (NEGATIVE); KETONE, URINE AUTO TRACE mg/dL (NEGATIVE); LEUKOCYTE ESTERASE, URINE AUTO NEGATIVE (NEGATIVE); MUCUS, URINE SMALL (NEGATIVE); NITRITE, URINE AUTO NEGATIVE (NEGATIVE); PROTEIN, URINE AUTO NEGATIVE (NEGATIVE); RBC, URINE AUTO 2 /HPF (0-3); SPECIFIC GRAVITY URINE AUTO 1.021 (1.002-1.035); SQUAMOUS EPITHELIAL CELL UR AU 7 /HPF (0-6); UROBILINOGEN, URINE AUTO 0.2 mg/dL (0.0-2.0); WBC, URINE AUTO 3 /HPF (0-3)
[2020-12-25 08:50] LABS: GC DNA AMPLIFICATION NEGATIVE (NEGATIVE)
== END ==
LOC: M LAB REF 21:42
PROVIDERS: ATTEND Physician Assistant Medical
DX: R36.9 Urethral discharge, unspecified (principal)

== ENCOUNTER → 2021-04-11 | Outpatient (REF) | payer BC ==
[2021-04-11 16:25] LABS: BASO % 0.2 % (0.0-1.0); EOS # 0.1 10^3/uL (0.0-0.5); EOS % 1.8 % (0.0-3.0); HEMATOCRIT 40.8 % (36.0-47.0); HEMOGLOBIN 13.2 g/dl (12.0-15.5); LYMPH % 18.1 % (24.0-44.0); MEAN CORPUSCULAR HEMOGLOBIN 27.2 pg (27.0-33.0); MEAN CORPUSCULAR HGB CONC 32.4 g/dl (32.0-36.5); MONO # 0.5 10^3/uL (0.0-0.8); MONO % 9.1 % (2.0-8.0); NEUTROPHILS # 3.9 10^3/uL (1.5-8.5); NEUTROPHILS % 70.6 % (36.0-66.0); PLATELET COUNT, AUTOMATED 212 10^3/uL (150-450); RED BLOOD COUNT 4.86 10^6/uL (4.00-5.40); WHITE BLOOD COUNT 5.5 10^3/uL (4.0-10.0)
[2021-04-11 16:44] LABS: ALBUMIN 4.2 GM/DL (3.2-5.2); ALT/SGPT 27 U/L (12-78); BILIRUBIN,TOTAL 0.2 MG/DL (0.2-1.0); BLOOD UREA NITROGEN 17 MG/DL (7-18); CALCIUM LEVEL 8.7 MG/DL (8.5-10.1); CARBON DIOXIDE LEVEL 24 MEQ/L (21-32); CHLORIDE LEVEL 106 MEQ/L (98-107); CREATININE FOR GFR 0.83 MG/DL (0.55-1.30); FERRITIN 12 NG/ML (8-252); FREE T4 1.05 NG/DL (0.76-1.46); GLOMERULAR FILTRATION RATE > 60.0 (>60); GLUCOSE, FASTING 76 MG/DL (70-100); IRON (FE) 103 UG/DL (50-170); PERCENT SATURATION 27.8 % (13.2-45.0); SODIUM LEVEL 139 MEQ/L (136-145); TOTAL IRON BINDING CAPACITY 370 UG/DL (250-450); TOTAL PROTEIN 7.1 GM/DL (6.4-8.2)
[2021-04-11 16:46] LABS: VITAMIN B12 LEVEL 536 PG/ML
[2021-04-11 16:47] LABS: FOLATE 11.1 NG/ML
== END ==
LOC: M LABDRWAD 15:52
PROVIDERS: ATTEND Nurse Practitioner Adult Health
DX: E03.9 Hypothyroidism, unspecified (principal); E55.9 Vitamin D deficiency, unspecified; D50.9 Iron deficiency anemia, unspecified; F33.1 Major depressive disorder, recurrent, moderate

== ENCOUNTER → 2021-10-04 | Outpatient (CLI) | payer BC ==
[2021-10-04 16:42] LABS: BASO % 0.3 % (0.0-1.0); EOS # 0.1 10^3/uL (0.0-0.5); EOS % 3.3 % (0.0-3.0); HEMATOCRIT 40.4 % (36.0-47.0); HEMOGLOBIN 12.5 g/dl (12.0-15.5); LYMPH # 1.1 10^3/uL (1.5-5.0); LYMPH % 35.2 % (24.0-44.0); MEAN CORPUSCULAR HGB CONC 30.9 g/dl (32.0-36.5); MEAN CORPUSCULAR VOLUME 80.6 fl (80.0-96.0); MONO # 0.4 10^3/uL (0.0-0.8); MONO % 12.6 % (2.0-8.0); NEUTROPHILS # 1.5 10^3/uL (1.5-8.5); NEUTROPHILS % 48.6 % (36.0-66.0); PLATELET COUNT, AUTOMATED 266 10^3/uL (150-450); RED BLOOD COUNT 5.01 10^6/uL (4.00-5.40)
[2021-10-04 17:05] LABS: ALBUMIN 4.4 GM/DL (3.2-5.2); ALT/SGPT 14 U/L (12-78); BILIRUBIN,TOTAL 0.7 MG/DL (0.2-1.0); BLOOD UREA NITROGEN 15 MG/DL (7-18); CALCIUM LEVEL 9.7 MG/DL (8.5-10.1); CARBON DIOXIDE LEVEL 25 MEQ/L (21-32); CHLORIDE LEVEL 105 MEQ/L (98-107); CREATININE FOR GFR 0.99 MG/DL (0.55-1.30); FERRITIN 8 NG/ML (8-252); FREE T4 1.12 NG/DL (0.76-1.46); GLOMERULAR FILTRATION RATE > 60.0 (>60); GLUCOSE, FASTING 73 MG/DL (70-100); IRON (FE) 85 UG/DL (50-170); PERCENT SATURATION 19.2 % (13.2-45.0); POTASSIUM SERUM 4.5 MEQ/L (3.5-5.1); SODIUM LEVEL 135 MEQ/L (136-145); THYROID STIMULATING HORMONE 0.557 uIU/ML (0.358-3.740); TOTAL IRON BINDING CAPACITY 443 UG/DL (250-450); TOTAL PROTEIN 7.5 GM/DL (6.4-8.2)
== END ==
LOC: M ADAMS 11:37
PROVIDERS: ATTEND Physician Assistant
DX: E03.9 Hypothyroidism, unspecified (principal); D50.9 Iron deficiency anemia, unspecified; E55.9 Vitamin D deficiency, unspecified

== ENCOUNTER 2022-03-01 19:44 | Emergency (ER) | payer BC ==
[~2022-03-01] VITALS: Ht 160 cm; Wt 49.7 kg
[2022-03-01] MEDS ORDERED: BUPR300T92 (20:01)
[2022-03-01] MEDS ORDERED: RIME75TA (20:01)
[2022-03-01] MEDS ORDERED: TRAZ-252 (20:01)
[2022-03-01 20:40] LABS: CK-MB VALUE MASS < 1.0 NG/ML (<3.6)
[2022-03-01 20:42] LABS: BLOOD UREA NITROGEN 15 MG/DL (9-23); CALCIUM LEVEL 9.5 MG/DL (8.5-10.1); CARBON DIOXIDE LEVEL 20 MMOL/L (20-31); CHLORIDE LEVEL 100 MMOL/L (98-107); CPK CREATINE PHOSPHOKINASE 71 U/L (34-145); CREATININE FOR GFR 1.03 MG/DL (0.55-1.30); GLOMERULAR FILTRATION RATE > 60.0 (>60); GLUCOSE, FASTING 123 MG/DL (60-100); POTASSIUM SERUM 4.2 MMOL/L (3.5-5.1); SODIUM LEVEL 136 MMOL/L (136-145)
[2022-03-01 20:45] LABS: FREE T4 1.05 NG/DL (0.89-1.76); THYROID STIMULATING HORMONE 1.957 uIU/ML (0.55-4.78)
[2022-03-01 20:55] LABS: BASO % 0.4 % (0.0-1.0); EOS # 0.1 10^3/uL (0.0-0.5); EOS % 2.3 % (0.0-3.0); HEMATOCRIT 39.4 % (36.0-47.0); HEMOGLOBIN 12.2 g/dl (12.0-15.5); LYMPH # 1.6 10^3/uL (1.5-5.0); LYMPH % 29.4 % (24.0-44.0); MEAN CORPUSCULAR HEMOGLOBIN 24.3 pg (27.0-33.0); MEAN CORPUSCULAR VOLUME 78.5 fl (80.0-96.0); MONO # 0.6 10^3/uL (0.0-0.8); MONO % 11.4 % (2.0-8.0); NEUTROPHILS % 56.1 % (36.0-66.0); PLATELET COUNT, AUTOMATED 295 10^3/uL (150-450); RED BLOOD COUNT 5.02 10^6/uL (4.00-5.40); WHITE BLOOD COUNT 5.3 10^3/uL (4.0-10.0)
[2022-03-01 21:00] VITALS: BP 123/83
[2022-03-01] MEDS ORDERED: BUPR150T12 PO (21:24)
== END 2022-03-01 21:55 | disposition home or self-care (01) ==
LOC: EDBD 19:44 → M ED 19:44
DX: G40.309 Generalized idiopathic epilepsy and epileptic syndromes, not intractable, without status epilepticus (principal); G43.909 Migraine, unspecified, not intractable, without status migrainosus; F41.9 Anxiety disorder, unspecified; F32.A Depression, unspecified; F10.10 Alcohol abuse, uncomplicated; Z79.811 Long term (current) use of aromatase inhibitors; Z79.899 Other long term (current) drug therapy

== ENCOUNTER → 2022-03-07 | Outpatient (CLI) | payer BC ==
[~2022-03-07] MED LIST changes: +BUPR150T12 PO; +BUPR300T92; +RIME75TA; +TRAZ-252
== END ==
LOC: M RAD 10:46
PROVIDERS: ATTEND Physician Assistant
DX: G40.89 Other seizures (principal); G93.0 Cerebral cysts; R90.82 White matter disease, unspecified

== ENCOUNTER → 2022-06-27 | Outpatient (CLI) | payer BC ==
[~2022-06-27] MED LIST changes: +PROHANCE 279.3MG/ML 5ML VIAL ONE
== END ==
LOC: M PLAIMG 14:03
PROVIDERS: ATTEND Neurological Surgery
DX: G93.0 Cerebral cysts (principal)
CPT/HCPCS: 70553; A9576

== ENCOUNTER → 2022-08-30 | Outpatient (REF) | payer BC ==
[~2022-08-30] MED LIST changes: -PROHANCE 279.3MG/ML 5ML VIAL ONE
[2022-08-30 16:18] LABS: BASO % 0.2 % (0.0-1.0); EOS # 0.1 10^3/uL (0.0-0.5); EOS % 2.2 % (0.0-3.0); HEMATOCRIT 40.7 % (36.0-47.0); HEMOGLOBIN 13.5 g/dl (12.0-15.5); LYMPH # 1.1 10^3/uL (1.5-5.0); MEAN CORPUSCULAR HEMOGLOBIN 27.7 pg (27.0-33.0); MEAN CORPUSCULAR HGB CONC 33.2 g/dl (32.0-36.5); MEAN CORPUSCULAR VOLUME 83.4 fl (80.0-96.0); MONO # 0.6 10^3/uL (0.0-0.8); NEUTROPHILS # 3.1 10^3/uL (1.5-8.5); NEUTROPHILS % 62.4 % (36.0-66.0); PLATELET COUNT, AUTOMATED 211 10^3/uL (150-450); RED BLOOD COUNT 4.88 10^6/uL (4.00-5.40); WHITE BLOOD COUNT 4.9 10^3/uL (4.0-10.0)
[2022-08-30 16:21] LABS: ALBUMIN 4.3 G/DL (3.2-5.2); ALKALINE PHOSPHATASE 51 U/L (46-116); ALT/SGPT 11 U/L (7.0-40); AST/SGOT 11 U/L (<34); BILIRUBIN,TOTAL 1.2 MG/DL (0.3-1.2); BLOOD UREA NITROGEN 21 MG/DL (9-23); CALCIUM LEVEL 10.2 MG/DL (8.5-10.1); CARBON DIOXIDE LEVEL 26 MMOL/L (20-31); CHLORIDE LEVEL 102 MMOL/L (98-107); CREATININE FOR GFR 0.75 MG/DL (0.55-1.30); GLOMERULAR FILTRATION RATE > 60.0 (>60); GLUCOSE, FASTING 68 MG/DL (60-100); POTASSIUM SERUM 4.3 MMOL/L (3.5-5.1); SODIUM LEVEL 138 MMOL/L (136-145); TOTAL PROTEIN 6.9 G/DL (5.7-8.2)
== END ==
LOC: M LABDRWAD 15:56
PROVIDERS: ATTEND Psychiatry & Neurology Neurology
DX: G43.019 Migraine without aura, intractable, without status migrainosus (principal)

== ENCOUNTER → 2022-09-20 | Outpatient (REF) | payer BC ==
[2022-09-20 16:15] LABS: BASO % 0.2 % (0.0-1.0); EOS # 0.2 10^3/uL (0.0-0.5); EOS % 3.2 % (0.0-3.0); HEMATOCRIT 41.1 % (36.0-47.0); HEMOGLOBIN 13.6 g/dl (12.0-15.5); LYMPH # 1.3 10^3/uL (1.5-5.0); LYMPH % 24.9 % (24.0-44.0); MEAN CORPUSCULAR HEMOGLOBIN 28.5 pg (27.0-33.0); MEAN CORPUSCULAR HGB CONC 33.1 g/dl (32.0-36.5); MEAN CORPUSCULAR VOLUME 86.2 fl (80.0-96.0); MONO # 0.6 10^3/uL (0.0-0.8); MONO % 10.9 % (2.0-8.0); NEUTROPHILS # 3.2 10^3/uL (1.5-8.5); NEUTROPHILS % 60.4 % (36.0-66.0); PLATELET COUNT, AUTOMATED 224 10^3/uL (150-450); RED BLOOD COUNT 4.77 10^6/uL (4.00-5.40); WHITE BLOOD COUNT 5.3 10^3/uL (4.0-10.0)
[2022-09-20 16:18] LABS: ALBUMIN 4.2 G/DL (3.2-5.2); ALKALINE PHOSPHATASE 50 U/L (46-116); ALT/SGPT 12 U/L (7.0-40); AST/SGOT < 8 U/L (<34); BILIRUBIN,TOTAL 0.8 MG/DL (0.3-1.2); BLOOD UREA NITROGEN 15 MG/DL (9-23); CALCIUM LEVEL 9.3 MG/DL (8.5-10.1); CARBON DIOXIDE LEVEL 27 MMOL/L (20-31); CHLORIDE LEVEL 103 MMOL/L (98-107); GLOMERULAR FILTRATION RATE > 60.0 (>58); GLUCOSE, FASTING 82 MG/DL (60-100); SODIUM LEVEL 136 MMOL/L (136-145); TOTAL PROTEIN 6.7 G/DL (5.7-8.2)
[2022-09-20 16:20] LABS: THYROID STIMULATING HORMONE 0.189 uIU/ML (0.55-4.78)
[2022-09-20 16:21] LABS: FREE T4 1.24 NG/DL (0.89-1.76)
== END ==
LOC: M LABDRWAD 15:52
PROVIDERS: ATTEND Physician Assistant
DX: E03.9 Hypothyroidism, unspecified (principal)

== ENCOUNTER 2022-10-05 15:19 | Emergency (ER) | payer BC ==
[~2022-10-05] VITALS: Ht 160 cm; Wt 51.1 kg
[2022-10-05 15:19] VITALS: TEMP 97.5
[2022-10-05 16:31] LABS: BASO % 0.3 % (0.0-1.0); EOS # 0.2 10^3/uL (0.0-0.5); EOS % 4.8 % (0.0-3.0); HEMATOCRIT 44.2 % (36.0-47.0); HEMOGLOBIN 14.3 g/dl (12.0-15.5); LYMPH # 1.1 10^3/uL (1.5-5.0); LYMPH % 27.6 % (24.0-44.0); MEAN CORPUSCULAR HEMOGLOBIN 27.7 pg (27.0-33.0); MEAN CORPUSCULAR HGB CONC 32.4 g/dl (32.0-36.5); MEAN CORPUSCULAR VOLUME 85.7 fl (80.0-96.0); MONO # 0.5 10^3/uL (0.0-0.8); MONO % 11.6 % (2.0-8.0); NEUTROPHILS # 2.2 10^3/uL (1.5-8.5); NEUTROPHILS % 55.4 % (36.0-66.0); PLATELET COUNT, AUTOMATED 228 10^3/uL (150-450); RED BLOOD COUNT 5.16 10^6/uL (4.00-5.40)
[2022-10-05 16:42] LABS: LIPASE 49 U/L (12-53)
[2022-10-05 16:44] LABS: ALBUMIN 4.2 G/DL (3.2-5.2); ALKALINE PHOSPHATASE 57 U/L (46-116); ALT/SGPT 11 U/L (7.0-40); AST/SGOT < 8 U/L (<34); BILIRUBIN,DIRECT 0.2 MG/DL (<0.4); BILIRUBIN,TOTAL 0.7 MG/DL (0.3-1.2); BLOOD UREA NITROGEN 21 MG/DL (9-23); CALCIUM LEVEL 9.7 MG/DL (8.5-10.1); CARBON DIOXIDE LEVEL 28 MMOL/L (20-31); CHLORIDE LEVEL 104 MMOL/L (98-107); CK-MB VALUE MASS < 1.0 NG/ML (<3.6); CREATININE FOR GFR 0.76 MG/DL (0.55-1.30); GLOMERULAR FILTRATION RATE > 60.0 (>58); GLUCOSE, FASTING 75 MG/DL (60-100); HCG, SERUM QUANTITATIVE < 2.6 MIU/ML (<4.2); POTASSIUM SERUM 4.3 MMOL/L (3.5-5.1); SODIUM LEVEL 137 MMOL/L (136-145); TOTAL PROTEIN 7.3 G/DL (5.7-8.2)
[2022-10-05 16:47] LABS: CPK CREATINE PHOSPHOKINASE 65 U/L (34-145); MB/CK RELATIVE INDEX 1.53 (< OR =4)
[2022-10-05] MEDS ORDERED: KETOROLAC 30 MG/ML 1ML VIAL IV ONE (18:25)
[2022-10-05 19:15] LABS: CK-MB VALUE MASS < 1.0 NG/ML (<3.6)
[2022-10-05 19:16] LABS: CPK CREATINE PHOSPHOKINASE 62 U/L (34-145); MB/CK RELATIVE INDEX 1.61 (< OR =4)
[2022-10-05 19:34] VITALS: BP 115/79; O2SAT 100
[2022-10-05] MEDS ORDERED: IBUP-1022 PO (20:58)
== END 2022-10-05 21:22 | disposition home or self-care (01) ==
LOC: M ED 15:19
DX: R07.89 Other chest pain (principal); Z79.899 Other long term (current) drug therapy
CPT/HCPCS: 71045; 80048; 80076; 82550; 82553; 83690; 84484; 84702; 85025; 85379; 93005; 96374; 99284; J1885

== ENCOUNTER → 2022-11-27 | Outpatient (REF) | payer BC ==
[~2022-11-27] MED LIST changes: +IBUP-1022 PO
[2022-11-27 17:12] LABS: BASO % 0.2 % (0.0-1.0); EOS # 0.2 10^3/uL (0.0-0.5); EOS % 4.3 % (0.0-3.0); HEMATOCRIT 43.8 % (36.0-47.0); HEMOGLOBIN 14.5 g/dl (12.0-15.5); LYMPH % 24.4 % (24.0-44.0); MEAN CORPUSCULAR HEMOGLOBIN 29.1 pg (27.0-33.0); MEAN CORPUSCULAR HGB CONC 33.1 g/dl (32.0-36.5); MEAN CORPUSCULAR VOLUME 87.8 fl (80.0-96.0); MONO # 0.4 10^3/uL (0.0-0.8); MONO % 10.1 % (2.0-8.0); NEUTROPHILS # 2.5 10^3/uL (1.5-8.5); NEUTROPHILS % 60.8 % (36.0-66.0); PLATELET COUNT, AUTOMATED 232 10^3/uL (150-450); RED BLOOD COUNT 4.99 10^6/uL (4.00-5.40); WHITE BLOOD COUNT 4.1 10^3/uL (4.0-10.0)
[2022-11-27 17:19] LABS: ALBUMIN 4.1 G/DL (3.2-5.2); ALKALINE PHOSPHATASE 49 U/L (46-116); ALT/SGPT 14 U/L (7.0-40); AST/SGOT 12 U/L (<34); BILIRUBIN,TOTAL 0.8 MG/DL (0.3-1.2); BLOOD UREA NITROGEN 17 MG/DL (9-23); CALCIUM LEVEL 9.3 MG/DL (8.5-10.1); CARBON DIOXIDE LEVEL 31 MMOL/L (20-31); CHLORIDE LEVEL 106 MMOL/L (98-107); FREE T4 1.34 NG/DL (0.89-1.76); GLOMERULAR FILTRATION RATE > 60.0 (>58); GLUCOSE, FASTING 62 MG/DL (60-100); POTASSIUM SERUM 4.4 MMOL/L (3.5-5.1); SODIUM LEVEL 142 MMOL/L (136-145); THYROID STIMULATING HORMONE 0.157 uIU/ML (0.55-4.78); TOTAL PROTEIN 6.8 G/DL (5.7-8.2)
== END ==
LOC: M LABDRWAD 16:42
PROVIDERS: ATTEND Physician Assistant
DX: E03.9 Hypothyroidism, unspecified (principal); E55.9 Vitamin D deficiency, unspecified

== ENCOUNTER → 2023-04-04 | Outpatient (CLI) | payer BC ==
[~2023-04-04] MED LIST changes: +PROHANCE 279.3MG/ML 5ML VIAL ONE
== END ==
LOC: M PLAIMG 14:23
PROVIDERS: ATTEND Physician Assistant
DX: G93.0 Cerebral cysts (principal)
CPT/HCPCS: 70553; A9576

== ENCOUNTER 2023-09-06 15:46 | Emergency (ER) | payer BC ==
[~2023-09-06] VITALS: Ht 160 cm; Wt 52.3 kg
[~2023-09-06 15:46] MED LIST changes: -diphenhydrAMINE 25MG CAP PO ONE
[2023-09-06] MEDS: dexAMETHasone 20MG/5ML VIAL IV ONE (16:12)
[2023-09-06] MEDS: NS 500 ML IV ONE (16:12)
[2023-09-06 17:56] VITALS: BP 112/75; TEMP 97.2; O2SAT 100
== END 2023-09-06 18:00 | disposition home or self-care (01) ==
LOC: M ED 15:46
DX: T88.6XXA Anaphylactic reaction due to adverse effect of correct drug or medicament properly administered, initial encounter (principal); G43.909 Migraine, unspecified, not intractable, without status migrainosus; N80.9 Endometriosis, unspecified; E03.9 Hypothyroidism, unspecified; D50.9 Iron deficiency anemia, unspecified; F41.9 Anxiety disorder, unspecified; Z79.899 Other long term (current) drug therapy
CPT/HCPCS: 96374; 99284; J1100

== ENCOUNTER → 2023-09-06 | Outpatient (CLI) | payer BC ==
[~2023-09-06] VITALS: Ht 160 cm; Wt 50.0 kg
[2023-09-06] VITALS (10 sets, daily range): BP systolic 84–118; BP diastolic 52–84; O2SAT 98–100
[~2023-09-06] MED LIST changes: +BUPR-597; -BUPR300T92; -PROHANCE 279.3MG/ML 5ML VIAL ONE; +diphenhydrAMINE 25MG CAP PO ONE
[2023-09-06] MEDS: IRON SUCROSE 500 MG in NS 250 ML OVER 4 HRS IV ONE (10:13)
[2023-09-06] MEDS: diphenhydrAMINE 50MG/ML VIAL IV ONE (14:46)
== END ==
LOC: M INFU 09:21
PROVIDERS: ATTEND Family Medicine
DX: D50.9 Iron deficiency anemia, unspecified (principal)
CPT/HCPCS: 96365; 96366; J1200; J1756

== ENCOUNTER → 2024-03-20 | Outpatient (REF) | payer BC ==
[2024-03-20 14:18] LABS: HEMATOCRIT 41.6 % (36.0-47.0); HEMOGLOBIN 13.6 g/dl (12.0-15.5); MEAN CORPUSCULAR HGB CONC 32.7 g/dl (32.0-36.5); MEAN CORPUSCULAR VOLUME 85.8 fl (80.0-96.0); PLATELET COUNT, AUTOMATED 234 10^3/uL (150-450); RED BLOOD COUNT 4.85 10^6/uL (4.00-5.40); WHITE BLOOD COUNT 3.4 10^3/uL (4.0-10.0)
[2024-03-20 14:21] LABS: ALBUMIN 4.3 G/DL (3.2-5.2); ALKALINE PHOSPHATASE 47 U/L (35-104); ALT/SGPT 12 U/L (7.0-40); AST/SGOT 9 U/L (<34); BILIRUBIN,TOTAL 0.7 MG/DL (0.3-1.2); BLOOD UREA NITROGEN 18 MG/DL (9-23); C REACTIVE PROTEIN QUANTITATIV < 0.50 MG/DL (<1.0); CALCIUM LEVEL 9.3 MG/DL (8.5-10.1); CARBON DIOXIDE LEVEL 26 MMOL/L (20-31); CHLORIDE LEVEL 105 MMOL/L (98-107); CHOLESTEROL LEVEL 190 MG/DL (<200); CHOLESTEROL RISK RATIO 2.35 (<5); CREATININE FOR GFR 0.79 MG/DL (0.55-1.30); FERRITIN 6.9 NG/ML (7.3-270.7); FOLATE 13.55 NG/ML (>5.4); GLOMERULAR FILTRATION RATE > 60.0 (>58); GLUCOSE, FASTING 78 MG/DL (60-100); HDL CHOLESTEROL 80.8 MG/DL (>40); IRON (FE) 41 UG/DL (50-170); LDL CHOLESTEROL 93.2 MG/DL (<100); NON-HDL-C 109.2 MG/DL; PERCENT SATURATION 10.6 % (13.2-45.0); POTASSIUM SERUM 4.4 MMOL/L (3.5-5.1); RHEUMATOID FACTOR QUANT 6.5 IU/ML (<14); SODIUM LEVEL 143 MMOL/L (136-145); THYROID PEROXIDASE ANTIBODY < 28.0 U/ML (<60.0); THYROID STIMULATING HORMONE 0.176 uIU/ML (0.55-4.78); TOTAL 25(OH) VITAMIN D 24.4 NG/ML (20.0-100.0); TOTAL IRON BINDING CAPACITY 386 UG/DL (250-425); TOTAL PROTEIN 7.4 G/DL (5.7-8.2); TRIGLYCERIDES LEVEL 80 MG/DL (<150); VITAMIN B12 LEVEL 534 PG/ML (211-911)
[2024-03-20 14:22] LABS: FREE T4 1.75 NG/DL (0.89-1.76)
[2024-03-20 14:47] LABS: HEMOGLOBIN A1c 4.6 % (4.0-6.0)
== END ==
LOC: M SFHCADAM 09:17
PROVIDERS: ATTEND Family Medicine
DX: E03.9 Hypothyroidism, unspecified (principal); I73.00 Raynaud's syndrome without gangrene; R53.83 Other fatigue; Z86.2 Personal history of diseases of the blood and blood-forming organs and certain disorders involving the immune mechanism; G43.909 Migraine, unspecified, not intractable, without status migrainosus

== ENCOUNTER 2024-05-07 10:38 | Outpatient (CLI) | payer BC ==
[~2024-05-07] VITALS: Ht 160 cm; Wt 51.4 kg
[~2024-05-07 10:38] MED LIST changes: +ALBUTEROL SULFATE 2.5MG/0.5ML INH NEB SOLN INH PRN; +EPINEPHrine INJ 1 MG/ML 1ML AMP IM PRN
[2024-05-07 10:45] VITALS: BP 126/84; O2SAT 100
[2024-05-07] MEDS: ACETAMINOPHEN 650MG PO PRIOR TO INFUSION PO ONE (11:10)
[2024-05-07] MEDS: diphenhydrAMINE 25MG PO PRIOR TO INFUSION PO ONE (11:10)
[2024-05-07] MEDS: methylPREDNISolone 125MG 2ML VIAL IV ONE (11:11)
[2024-05-07] MEDS: IRON SUCROSE 500 MG in NS 250 ML OVER 4 HRS IV ONE (11:33)
[2024-05-07 13:00] VITALS: BP 109/62; O2SAT 100
[2024-05-07 14:00] VITALS: BP 108/66; O2SAT 99
[2024-05-07] MEDS: methylPREDNISolone 125MG 2ML VIAL IV PRN (15:44)
[2024-05-07 16:00] VITALS: BP 126/78; O2SAT 99
[2024-05-07] MEDS: diphenhydrAMINE 50MG/ML VIAL IV PRN (16:12)
[2024-05-07 17:10] VITALS: BP 123/73; O2SAT 99
== END 2024-05-07 17:10 ==
LOC: M INFU 10:38
PROVIDERS: ATTEND Family Medicine
DX: D50.9 Iron deficiency anemia, unspecified (principal)
CPT/HCPCS: 96365; 96366; 96375; J1200; J1756; J2919

== ENCOUNTER 2024-05-23 09:24 | Day surgery (SDC) | payer BC ==
[~2024-05-23] VITALS: Ht 160 cm; Wt 49.6 kg
[~2024-05-23 09:24] MED LIST changes: -ALBUTEROL SULFATE 2.5MG/0.5ML INH NEB SOLN INH PRN; -EPINEPHrine INJ 1 MG/ML 1ML AMP IM PRN; +SYNT75TA PO
[2024-05-23] MEDS ORDERED: LIDOCAINE 2% 100MG/5ML SDV (FOR ANES.) As Ordered ONE (09:56)
[2024-05-23] MEDS ORDERED: propofoL 200 MG/20 ML VIAL As Ordered ONE (09:56)
[2024-05-23] MEDS ORDERED: fentaNYL 100 MCG/2 ML INJECTION As Ordered ONE (09:57)
[2024-05-23] MEDS ORDERED: PHENYLephrine 500MCG 5ML (100MCG/ML) SYRINGE As Ordered ONE (10:30)
[2024-05-23 11:12] VITALS: BP 98/63; O2SAT 100
== END 2024-05-23 11:20 | disposition home or self-care (01) ==
LOC: M OPP 09:24
PROVIDERS: ATTEND Surgery
DX: K62.1 Rectal polyp (principal); K59.00 Constipation, unspecified; D50.9 Iron deficiency anemia, unspecified; K44.9 Diaphragmatic hernia without obstruction or gangrene; K31.89 Other diseases of stomach and duodenum; K30 Functional dyspepsia; Z79.899 Other long term (current) drug therapy; R56.9 Unspecified convulsions
CPT/HCPCS: 43239; 45380; 88305; J2371; J3010

== ENCOUNTER → 2024-07-10 | Outpatient (CLI) | payer BC ==
[~2024-07-10] MED LIST changes: -BUPR-597; +BUPR-766; +ISOVUE-370 76% 100ML VIAL As Ordered ONE
== END ==
LOC: M RAD 15:51
PROVIDERS: ATTEND Physician Assistant
DX: D25.9 Leiomyoma of uterus, unspecified (principal); I87.8 Other specified disorders of veins
CPT/HCPCS: 74177; Q9967

== ENCOUNTER → 2024-09-26 | Outpatient (CLI) | payer BC ==
[~2024-09-26] MED LIST changes: -ISOVUE-370 76% 100ML VIAL As Ordered ONE
== END ==
LOC: M WHC 13:07
PROVIDERS: ATTEND Family Medicine
DX: R10.2 Pelvic and perineal pain (principal); N88.8 Other specified noninflammatory disorders of cervix uteri; D25.9 Leiomyoma of uterus, unspecified

== ENCOUNTER → 2024-12-01 | Outpatient (REF) | payer BC ==
[~2024-12-01] MED LIST changes: -IBUP-1022 PO; +IBUP600T42 PO
[2024-12-01 14:02] LABS: PLATELET COUNT, AUTOMATED 216 10^3/uL (150-450)
[2024-12-01 14:33] LABS: IRON (FE) 80.0 UG/DL (50-170); PERCENT SATURATION 27.3 % (13.2-45.0)
[2024-12-01 14:34] LABS: FREE T4 1.3 NG/DL (0.89-1.76)
== END ==
LOC: M SFHCADAM 10:50
PROVIDERS: ATTEND Family Medicine
DX: E03.9 Hypothyroidism, unspecified (principal); Z86.2 Personal history of diseases of the blood and blood-forming organs and certain disorders involving the immune mechanism